=== PATIENT | female | born 1995 | race Caucasian/White ===

== ENCOUNTER 2024-03-22 16:02 | Emergency (ER) | payer OTHER, SELFPAY ==
[2024-03-22 16:54] VITALS: BP 123/100; PULSE 121; RESP 18; TEMP 36.8; O2SAT 98
--- NOTE | 2024-03-22 16:56 | ED.ABDPAIN ---
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 Ongoing over the last week. No associated symptoms. She is currently on her mentrual cycle. Denies fever, vomiting, dysuria, or diarrhea. GENERAL: Uncomfortable-appearing, well-nourished HEAD: Normocephalic, atraumatic. CHEST: Clear to auscultation. ?No respiratory distress. HEART: Regular rate and rhythm.? NEURO: ?Alert and oriented x3. Patient screened in triage and initial orders placed.? ?Additional care and disposition to be based upon?diagnostic testing and treatment. Related Data Allergies Allergy/AdvReac Type Severity Reaction Status Date / Time NKDA Allergy Unknown Uncoded 03/04/08 07:17 Course Vital Signs Vital signs: Vital Signs Temperature 98.3 F 03/22/24 16:54 Pulse Rate 121 H 03/22/24 16:54 Respiratory Rate 18 03/22/24 16:54 Blood Pressure 123/100 H 03/22/24 16:54 Pulse Oximetry 98 03/22/24 16:54 Oxygen Delivery Room Air 03/22/24 16:54 Temperature 98.3 F 03/22/24 16:54 Pulse Rate 121 H 03/22/24 16:54 Respiratory Rate 18 03/22/24 16:54 Blood Pressure 123/100 H 03/22/24 16:54 Pulse Oximetry 98 03/22/24 16:54 Oxygen Delivery Room Air 03/22/24 16:54 MDM - Abdominal Pain MDM Narrative Medical decision making narrative: Patient eloped after being seen by myself and before any further evaluation or management Lab Data Attestation: I reviewed the patient's lab results. 03/22/24 17:34 03/22/24 17:34 Labs: Lab Results 03/22/24 Range/Units 17:34 WBC 9.5 (4.5-10.0) K/mm3 RBC 4.57 (4.2-5.4) M/mm3 Hgb 12.8 (12.0-15.0) g/dL Hct 39.7 (37.0-47.0) % MCV 86.9 (80-100) fl MCH 28.0 (26-34) pg MCHC 32.2 (32-36) g/dl RDW 15.4 H (11.5-14.5) % Plt Count 311 (150-375) k/mm3 MPV 9.3 (7.4-10.4) fl Immature Gran % (Auto) 0.3 (0-0.5) % Neut % (Auto) 56.0 (45.5-73.1) % Lymph % (Auto) 34.0 (18.3-44.2) % [place] % (Auto) 8.3 (2.6-8.5) % Eos % (Auto) 0.8 (0-4.4) % Baso % (Auto) 0.6 (0.2-1.2) % Lymph # (Auto) 3.24 H (0.9-3.2) K/mm3 [place] # (Auto) 0.8 H (0.1-0.6) K/mm3 Eos # (Auto) 0.1 (0-0.3) K/mm3 Baso # (Auto) 0.1 (0.0-0.1) K/mm3 Abs Immat Gran (auto) 0.03 (0.00-0.031) K/mm3 Absolute Neuts (auto) 5.3 (1.3-6.7) K/mm3 Absolute Nucleated RBC 0.000 (0.0-0.012) K/mm3 Nucleated RBC % 0.0 (0.0-0.2) % Sodium 139 (137-145) mmol/L Potassium 3.5 (3.4-5.0) mmol/L Chloride 105 (98-107) mmol/L Carbon Dioxide 22 (22-30) mmol/L Anion Gap 12 (4-12) mmol/L BUN 10 (7-17) mg/dL Creatinine 0.70 (0.7-1.0) mg/dL Estim Creat Clear Calc 120 ml/min Estimated GFR > 60 (59 - ) Glucose 90 (65-110) mg/dL Calcium 8.9 (8.4-10.2) mg/dL Total Bilirubin 0.2 (0.2-1.3) mg/dL AST 25 (14-36) U/L ALT 15 (6-35) U/L Alkaline Phosphatase 54 (38-126) U/L Total Protein 8.0 (6.3-8.2) g/dL Albumin 4.4 (3.5-5.1) g/dL Lipase 72 (23-300) U/L Discharge Plan Discharge Clinical Impression: Pelvic pain Patient Disposition: Elopement After Seen by Prov Condition: Guarded Prognosis Follow-up/Referrals: PHYSICIAN NOT ON STAFF,NONSTAFF [Primary Care Provider] -
[2024-03-22 17:40] LABS: Basophils Absolute Auto 0.1 K/mm3 (0.0-0.1); Basophils Percent Auto 0.6 % (0.2-1.2); Eosinophils Absolute Auto 0.1 K/mm3 (0-0.3); Eosinophils Percent Auto 0.8 % (0-4.4); Hematocrit 39.7 % (37.0-47.0); Hemoglobin 12.8 g/dL (12.0-15.0); Immature Granulocyte Absolute 0.03 K/mm3 (0.00-0.031); Immature Granulocyte Percent A 0.3 % (0-0.5); Lymphocytes Absolute Auto 3.24 K/mm3 (0.9-3.2); Mean Corpuscular HGB Conc 32.2 g/dl (32-36); Mean Corpuscular Volume 86.9 fl (80-100); Mean Platelet Volume 9.3 fl (7.4-10.4); Monocytes Absolute Auto 0.8 K/mm3 (0.1-0.6); Monocytes Percent Auto 8.3 % (2.6-8.5); Neutrophils Absolute Auto 5.3 K/mm3 (1.3-6.7); Platelet Count Result 311 k/mm3 (150-375); Red Blood Count 4.57 M/mm3 (4.2-5.4); Red Cell Distribution Width 15.4 % (11.5-14.5); White Blood Count 9.5 K/mm3 (4.5-10.0)
[2024-03-22 17:50] LABS: Alanine Aminotransferase 15 U/L (6-35); Albumin Level 4.4 g/dL (3.5-5.1); Alkaline Phosphatase 54 U/L (38-126); Anion Gap 12 mmol/L (4-12); Aspartate Amino Transferase 25 U/L (14-36); Bilirubin,Total 0.2 mg/dL (0.2-1.3); Blood Urea Nitrogen 10 mg/dL (7-17); Calcium 8.9 mg/dL (8.4-10.2); Carbon Dioxide 22 mmol/L (22-30); Chloride 105 mmol/L (98-107); Estimated CRCL calculation 120 ml/min; Estimated Glomerular Filt Rate > 60; Glucose 90 mg/dL (65-110); Lipase 72 U/L (23-300); Potassium 3.5 mmol/L (3.4-5.0); Sodium 139 mmol/L (137-145)
--- NOTE | 2024-03-22 19:58 | PC.NURSE ---
pt and mother to registered nurse maternity we are leaving, we cant wait any longer, she is getting worse and needs to be seen.
== END 2024-03-22 19:58 | disposition left against medical advice (07) ==
LOC: ANHED 20:14
PROVIDERS: Emergency Provider Physician Assistant
DX: R10.2 Pelvic and perineal pain (principal)
CPT/HCPCS: 36415; 80053; 83690; 85025; 99283